=== PATIENT | female | born 1970 | race Caucasian/White ===

== ENCOUNTER 2016-11-24 11:52 | Inpatient (IN) | payer OTHER ==
[2016-11-24 13:11] VITALS: BMI 33.5
--- NOTE | 2016-11-24 15:22 | HP ---
Ad[facility] Chief Complaint: i need help to stop drinking alcohol and cocaine Allergies/Adverse Reactions: Allergies Allergy/AdvReac Type Severity Reaction Status Date / Time No Known Allergies Allergy Verified 11/24/16 15:11 History of Present Illness: this 46 years old female with alcohol and cocaine dependence,seen in [facility] last night,medically clear to come in for evaluation never been in detox before depression asthma on albuterol inhaler s/p lap gastric bypass longest period of sobriety 6 months Exam Limitations: No Limitations - Ebola screening Have you been sick,other than usual withdrawal symptoms: No - Review of Systems Constitutional: Loss of Appetite EENT: reports: No Symptoms Reported Respiratory: reports: No Symptoms reported Cardiac: reports: No Symptoms Reported GI: reports: No Symptoms Reported, Other (s/p lap gastric bypass) : reports: No Symptoms Reported Musculoskeletal: reports: No Symptoms Reported Integumentary: reports: No Symptoms Reported Neuro: reports: No Symptoms reported Endocrine: reports: No Symptoms Reported Hematology: reports: No Symptoms Reported Psychiatric: reports: Judgement Intact, Orientated x3, Depressed Patient History - Patient Medical History Hx Anemia: No Hx Asthma: Yes (on albuterol inhaler) Hx Chronic Obstructive Pulmonary Disease (COPD): No Hx Cancer: No Hx Cardiac Disorders: No Hx Congestive Heart Failure: No Hx Hypertension: No Hx Hypercholesterolemia: No Hx Pacemaker: No HX Cerebrovascular Accident: No Hx Seizures: No Hx Dementia: No Hx Diabetes: No Hx Gastrointestinal Disorders: Yes (s/p lap gastric by pass) Hx Liver Disease: No Hx Genitourinary Disorders: No Hx Sexually Transmitted Disorders: No Hx Renal Disease (ESRD): No Hx Thyroid Disease: No Hx Human Immunodeficiency Virus (HIV): No (last 11/17 negative) Hx Hepatitis C: No Hx Depression: Yes (on med) Hx Suicide Attempt: No Hx Bipolar Disorder: No Hx Schizophrenia: No Other Medical History: no suicidal,no homicidal - Patient Surgical History Hx Abdominal Surgery: Yes (s/p lap gastric by pass in 06/18 [facility]) Other Surgical History: s/p tubal ligation 21 years ago - PPD History Documented Results: Negative w/o proof Implanted On Prior R Admission?: No PPD to be Administered?: Yes - Reproductive History Patient is a Female of Child Bearing Age (11 -55 yrs old): Yes Last Menstrual Period: 11/15/16 Patient : No - Smoking Cessation Smoking history: Current every day smoker Have you smoked in the past 12 months: Yes Aproximately how many cigarettes per day: 2 Hx Chewing Tobacco Use: No Initiated information on smoking cessation: Yes 'Breaking Loose' booklet given: 11/24/16 - Substance & Tx. History Hx Alcohol Use: Yes Hx Substance Use: Yes Substance Use Type: Alcohol, Cocaine Hx Substance Use Treatment: No - Substances Abused Alcohol Route: Oral Frequency: 1-2 times per week Amount used: 1 pint vodka Age of first use: 26 Date of Last Use: 11/22/16 Cocaine Route: Inhalation Frequency: 1-3 times last 30 days Amount used: 20$ Age of first use: 42 Date of Last Use: 11/17/16 Family Disease History - Family Disease History Family Disease History: Diabetes: Mother Admission Physical Exam [facility] - Vital Signs Vital Signs: Vital Signs - 24 hr 11/24/16 13:09 Temperature 98.5 F Pulse Rate 83 Respiratory 20 Rate Blood Pressure 121/64 - Physical General Appearance: Yes: Within Normal Limits HEENTM: Yes: Within Normal Limits, Hearing grossly Normal, ISABELL, Pharynx Normal Respiratory: Yes: Lungs Clear, Normal Breath Sounds, No Respiratory Distress, Other (asthma history) Neck: Yes: Within Normal Limits Breast: Yes: Breast Exam Deferred Cardiology: Yes: Within Normal Limits, Regular Rhythm, Regular Rate, S1, S2 Abdominal: Yes: Normal Bowel Sounds, Non Tender, Flat, Soft, Pulsatile Mass Genitourinary: Yes: Within Normal Limits Back: Yes: Within Normal Limits Musculoskeletal: Yes: Within Normal Limits Extremities: Yes: Within Normal Limits, Normal Capillary Refill, Normal Inspection, Normal Range of Motion, Non-Tender Neurological: Yes: cleaning supervisor II-XII NML intact, Fully Oriented, Alert, Motor Strength 5/5 Integumentary: Yes: Within Normal Limits - Diagnostic (1) Alcohol dependence Current Visit: Yes Status: Acute (2) Cocaine abuse Current Visit: Yes Status: Acute (3) Depression Current Visit: Yes Status: Acute (4) Gastric bypass status for obesity Current Visit: Yes Status: Acute (5) Syncope Current Visit: Yes Status: Acute Cleared for Admission [facility] - Detox or Rehab Claeared for Rehab Admission: Yes [facility] Breath Alcohol Content Breath Alcohol Content: 0.049 Urine Pregancy Test - Result Urine Test Results: Negative- NO Line Present Urine Drug Screen - Results Drug Screen Negative: No Urine Drug Screen Results: DEV-Cocaine
[2016-11-24] MEDS ORDERED: LOPERAMIDE HCL 2 MG CAPSULE PO PRN (15:34)
[2016-11-24] MEDS ORDERED: P-EPHED 60MG/TRIPROLIDI 2.5MG TABLET PO PRN (15:34)
[2016-11-24] MEDS ORDERED: MAGNESIUM HYDROX 2400MG/30ML ORAL SUSPENSION 30 ML CUP PO PRN (15:34)
[2016-11-24] MEDS ORDERED: guaiFENesin/D-METHORPHAN HB 10 ML UNIT-DOSE CUPS PO PRN (15:34)
[2016-11-24] MEDS ORDERED: diphenhydrAMINE HCL 50 MG CAPSULE PO PRN (15:34)
[2016-11-24] MEDS ORDERED: IBUPROFEN 400 MG TABLET (FP) PO PRN (15:34)
[2016-11-24] MEDS ORDERED: hydrOXYzine PAMOATE 50 MG CAPSULE (FP) PO PRN (15:34)
[2016-11-24] MEDS ORDERED: MAG HYDROX/AL HYDROX/SIMETH 30 ML UNIT-DOSE CUP PO PRN (15:34)
[2016-11-24] MEDS ORDERED: MENTHOL/PHENOL 1 EACH UD MM PRN (15:34)
[2016-11-24] MEDS ORDERED: ACETAMINOPHEN 325 MG TABLET (FP) PO PRN (15:34)
[2016-11-24] MEDS ORDERED: MAGNESIUM CITRATE 300 ML BOTTLE PO PRN (15:34)
[2016-11-24] MEDS ORDERED: TUBERCULIN PPD 5 TU/0.1ML VIAL ID ONE (17:31)
[2016-11-24 20:07] LABS: URINE APPEARANCE TURBID; URINE BILIRUBIN NEGATIVE (NEGATIVE); URINE COLOR YELLOW; URINE GLUCOSE (UA) NEGATIVE (NEGATIVE); URINE KETONE 1+ (NEGATIVE); URINE LEUK ESTERASE NEGATIVE (NEGATIVE); URINE NITRITE NEGATIVE (NEGATIVE); URINE UROBILINOGEN NEGATIVE E.U./dl (0.2-1.0)
[2016-11-24 20:09] LABS: URINE BLOOD 3+ (NEGATIVE); URINE PROTEIN 2+ (NEGATIVE)
[2016-11-24 20:17] LABS: URINE MUCUS MANY; URINE RBC 50 /hpf (0-3); URINE WBC 210 /hpf (3-5); YEAST FEW
[2016-11-24] MEDS ORDERED: THIAMINE HCL 100 MG TABLET (FP) PO SCH (22:00)
[2016-11-25 07:30] VITALS: BP 149/83; PULSE 91; TEMP 97.3
[2016-11-25] MEDS ORDERED: PRENATAL VITAMINS W/ FOLIC ACID TABLET (FP) PO SCH (10:00)
[2016-11-25] MEDS ORDERED: ASPIRIN 81 MG CHEWABLE TABLETS PO SCH (10:00)
[2016-11-25 10:37] LABS: MCH 27.3 pg (25.7-33.7); MCHC 31.7 g/dl (32.0-36.0); MEAN CELL VOLUME 86.1 fl (80-96); MEAN PLT VOLUME 9.2 fl (7.5-11.1); PLATELET COUNT 318 K/MM3 (134-434); RDW 16.1 % (11.6-15.6); WHITE BLOOD COUNT 9.9 K/mm3 (4.0-10.0)
[2016-11-25 11:22] LABS: PLATELET COMMENT2 NO CLOTTING DETECTED; PLATELET ESTIMATE ADEQUATE (NORMAL)
[2016-11-25 11:23] LABS: ALBUMIN 3.6 g/dl (3.4-5.0); ALK PHOS 64 U/L (45-117); ANION GAP 11 (8-16); BILIRUBIN,TOTAL 0.5 mg/dL (0.2-1.0); CALCIUM 8.5 mg/dL (8.5-10.1); CO2 23 mmol/L (21-32); CREATININE 0.8 mg/dL (0.55-1.02); GLUCOSE,RANDOM 79 mg/dL (74-106); SGOT/AST 24 U/L (15-37); SGPT/ALT 24 U/L (12-78); TOT PROT 6.9 g/dl (6.4-8.2)
[2016-11-25] MEDS ORDERED: SERTRALINE HCL 50 MG TABLET (FP) PO SCH (13:00)
--- NOTE | 2016-11-25 18:28 | EKG ---
Test Reason : Blood Pressure : / mmHG Vent. Rate : 075 BPM Atrial Rate : 075 BPM P-R Int : 148 ms QRS Dur : 104 ms QT Int : 400 ms P-R-T Axes : 063 066 057 degrees QTc Int : 446 ms NORMAL SINUS RHYTHM WITH SINUS ARRHYTHMIA NORMAL ECG NO PREVIOUS ECGS AVAILABLE Confirmed by ABELARDO BARTON MD ([id number]) on 11/25/2016 6:28:32 PM Referred By: Confirmed By:ABELARDO BARTON MD
--- NOTE | 2016-12-25 14:08 | PN ---
S Progress Note Note: Patient left this program AMA on 11/25/16 with no psychiatric evaluation,see staff notes for details.
== END 2016-11-25 16:56 | disposition left against medical advice (07) | DRG 894 ==
LOC: YASAS 11:52 → Y6N 15:00 → Y3E 15:36
PROVIDERS: ADMIT Psychiatry & Neurology Psychiatry; ATTEND Psychiatry & Neurology Psychiatry
PROC: HZ42ZZZ Group Counseling for Substance Abuse Treatment, Cognitive-Behavioral (ICD-10-PCS; principal; 2016-11-25)
DX: F10.230 Alcohol dependence with withdrawal, uncomplicated (principal); F14.10 Cocaine abuse, uncomplicated; F32.9 Major depressive disorder, single episode, unspecified; R55 Syncope and collapse; J45.909 Unspecified asthma, uncomplicated; Z98.84 Bariatric surgery status
CPT/HCPCS: 36415; 80053; 81003; 81015; 85027; 86593; 93005; 93010

== ENCOUNTER 2017-04-21 12:17 | Inpatient (IN) | payer OTHER ==
[2017-04-21 12:52] VITALS: BMI 30.9
--- NOTE | 2017-04-21 14:35 | HP ---
CIWA Score - CIWA Score Nausea/Vomitin-Mild Nausea/No Vomiting Muscle Tremors: 4-Moderate,w/Arms Extend Anxiety: 4-Mod. Anxious/Guarded Agitation: 1-Slight > Activity Paroxysmal Sweats: 1-Minimal Palms Moist Orientation: 1-Uncertain about Date Tacttile Disturbances: 1-Very Mild Itch/Numbness Auditory Disturbances: 1-Very Mild Visual Disturbances: 1-Very Mild Sensitivity Headache: 1-Very Mild CIWA-Ar Total Score: 16 Admission ROS [facility] - HPI Chief Complaint: I keep drinking more since my daughter in December Allergies/Adverse Reactions: Allergies Allergy/AdvReac Type Severity Reaction Status Date / Time No Known Allergies Allergy Verified 11/24/16 15:11 History of Present Illness: 46 yo woman here for detox from alcohol - no seizures, history of rehab in november 2016 - here due to 's intervention. Exam Limitations: Clinical Condition - Ebola screening Have you traveled outside of the country in the last 21 days: No Have you had contact with anyone from an Ebola affected area: No Have you been sick,other than usual withdrawal symptoms: No Do you have a fever: No - Review of Systems Constitutional: Loss of Appetite, Changes in sleep EENT: reports: No Symptoms Reported Respiratory: reports: No Symptoms reported Cardiac: reports: No Symptoms Reported GI: reports: Poor Appetite, Indigestion : reports: Frequency Musculoskeletal: reports: No Symptoms Reported Integumentary: reports: No Symptoms Reported Neuro: reports: Headache, Tremors Endocrine: reports: No Symptoms Reported Hematology: reports: No Symptoms Reported Psychiatric: reports: Judgement Intact, Mood/Affect Appropiate, Orientated x3, Anxious Other Systems: Reviewed and Negative Patient History - Patient Medical History Hx Anemia: No Hx Asthma: Yes (on inhaler) Hx Chronic Obstructive Pulmonary Disease (COPD): No Hx Cancer: No Hx Cardiac Disorders: No Hx Congestive Heart Failure: No Hx Hypertension: No Hx Hypercholesterolemia: No Hx Pacemaker: No HX Cerebrovascular Accident: No Hx Seizures: No Hx Dementia: No Hx Diabetes: No Hx Gastrointestinal Disorders: No Hx Liver Disease: No Hx Genitourinary Disorders: No Hx Sexually Transmitted Disorders: No Hx Renal Disease (ESRD): No Hx Thyroid Disease: No Hx Human Immunodeficiency Virus (HIV): No (last 11/17 negative) Hx Hepatitis C: No Hx Depression: Yes (since daughter's 12/2016) Hx Suicide Attempt: No Hx Bipolar Disorder: No Hx Schizophrenia: No - Patient Surgical History Hx Abdominal Surgery: Yes (s/p lap gastric by pass in 06/18 [facility]) Other Surgical History: s/p tubal ligation 21 years ago - PPD History Previous Implant?: Yes Documented Results: Negative w/proof Date: 11/26/16 PPD to be Administered?: Yes - Reproductive History Patient is a Female of Child Bearing Age (11 -55 yrs old): Yes Last Menstrual Period: 11/15/16 - Smoking Cessation Smoking history: Current every day smoker Have you smoked in the past 12 months: Yes Aproximately how many cigarettes per day: 4 Hx Chewing Tobacco Use: No Initiated information on smoking cessation: Yes 'Breaking Loose' booklet given: 04/21/17 (give on floor) - Substance & Tx. History Hx Alcohol Use: Yes Hx Substance Use: No Substance Use Type: Alcohol Hx Substance Use Treatment: Yes (detox) - Substances Abused Alcohol Route: Oral Frequency: 3-6 times per week Amount used: 1/2 pint liquor; 3 12 oz chiqui drinks Age of first use: 28 Date of Last Use: 04/21/17 Family Disease History - Family Disease History Family Disease History: Diabetes: Mother (living,), Other: Father (living, healthy), Mother, Son (one - healthy), Daughter (one killed, one healthy) Admission Physical Exam S - Vital Signs Vital Signs: Vital Signs - 24 hr 04/21/17 12:47 Temperature 97.8 F Pulse Rate 90 Respiratory 18 Rate Blood Pressure 139/79 - Physical General Appearance: Yes: Nourished, Appropriately Dressed, Mild Distress HEENTM: Yes: Hearing grossly Normal, Normal ENT Inspection, Normal Voice, Pharynx Normal Respiratory: Yes: Normal Breath Sounds, No Respiratory Distress Neck: Yes: No masses,lesions,Nodules, Supple Breast: Yes: Breast Exam Deferred Cardiology: Yes: Regular Rhythm, Regular Rate Abdominal: Yes: Soft, Protuberent Genitourinary: Yes: Frequency Back: Yes: Decreased Range of Motion Musculoskeletal: Yes: full range of Motion, Gait Steady Extremities: Yes: Normal Inspection, Normal Range of Motion Neurological: Yes: Alert, Normal Mood/Affect, Normal Response Integumentary: Yes: Normal Color, Warm Lymphatic: Yes: Within Normal Limits - Diagnostic (1) Alcohol dependence with uncomplicated withdrawal Current Visit: Yes Status: Chronic (2) Nicotine dependence Current Visit: Yes Status: Chronic Qualifiers: Nicotine product type: cigarettes (3) History of gastric bypass Current Visit: Yes Status: Chronic Cleared for Admission [facility] - Detox or Rehab [facility] Level of Care: Medically Managed Detox Regimen/Protocol: Librium [facility] Breath Alcohol Content Breath Alcohol Content: 0.131 Urine Pregancy Test - Result Urine Test Results: Negative- NO Line Present Urine Drug Screen - Results Drug Screen Negative: Yes
[2017-04-21] MEDS ORDERED: MAGNESIUM HYDROX 2400MG/30ML ORAL SUSPENSION 30 ML CUP PO PRN (14:40)
[2017-04-21] MEDS ORDERED: NICOTINE POLACRILEX 4 MG GUM BUC PRN (14:40)
[2017-04-21] MEDS ORDERED: hydrOXYzine PAMOATE 50 MG CAPSULE (FP) PO PRN (14:40)
[2017-04-21] MEDS ORDERED: chlordiazePOXIDE HCL 25 MG CAPSULE PO PRN (14:40)
[2017-04-21] MEDS ORDERED: MENTHOL/PHENOL 1 EACH UD MM PRN (14:40)
[2017-04-21] MEDS ORDERED: guaiFENesin/D-METHORPHAN HB 10 ML UNIT-DOSE CUPS PO PRN (14:40)
[2017-04-21] MEDS ORDERED: IBUPROFEN 400 MG TABLET (FP) PO PRN (14:40)
[2017-04-21] MEDS ORDERED: MAG HYDROX/AL HYDROX/SIMETH 30 ML UNIT-DOSE CUP PO PRN (14:40)
[2017-04-21] MEDS ORDERED: MAGNESIUM CITRATE 300 ML BOTTLE PO PRN (14:40)
[2017-04-21] MEDS ORDERED: ACETAMINOPHEN 325 MG TABLET (FP) PO PRN (14:40)
[2017-04-21] MEDS ORDERED: P-EPHED 60MG/TRIPROLIDI 2.5MG TABLET PO PRN (14:40)
[2017-04-21] MEDS ORDERED: LOPERAMIDE HCL 2 MG CAPSULE PO PRN (14:40)
[2017-04-21] MEDS ORDERED: ALBUTEROL SO4 6.7 GM HFA INHALER IH PRN (14:41)
[2017-04-21] MEDS ORDERED: chlordiazePOXIDE HCL 25 MG CAPSULE PO ONE (16:00)
[2017-04-21] MEDS: chlordiazePOXIDE HCL 25 MG CAPSULE PO SCH ×2 (18:04→22:36)
[2017-04-21] MEDS: THIAMINE HCL 100 MG TABLET (FP) PO SCH (22:36)
[2017-04-21 23:19] LABS: URINE APPEARANCE CLEAR; URINE BILIRUBIN NEGATIVE (NEGATIVE); URINE BLOOD NEGATIVE (NEGATIVE); URINE COLOR STRAW; URINE GLUCOSE (UA) NEGATIVE (NEGATIVE); URINE KETONE NEGATIVE (NEGATIVE); URINE LEUK ESTERASE NEGATIVE (NEGATIVE); URINE NITRITE NEGATIVE (NEGATIVE); URINE PROTEIN NEGATIVE (NEGATIVE); URINE UROBILINOGEN NEGATIVE mg/dL (0.2-1.0)
[2017-04-22] MEDS: chlordiazePOXIDE HCL 25 MG CAPSULE PO SCH ×4 (05:56→22:28)
[2017-04-22 10:22] LABS: MCH 27.1 pg (25.7-33.7); MCHC 32.3 g/dl (32.0-36.0); MEAN CELL VOLUME 83.9 fl (80-96); MEAN PLT VOLUME 8.2 fl (7.5-11.1); PLATELET COUNT 272 K/MM3 (134-434); RDW 17.6 % (11.6-15.6)
[2017-04-22] MEDS: PRENATAL VITAMINS W/ FOLIC ACID TABLET (FP) PO SCH (10:49)
[2017-04-22 11:03] LABS: ALBUMIN 2.8 g/dl (3.4-5.0); ANION GAP 8 (8-16); CALCIUM 8.1 mg/dL (8.5-10.1); CO2 28 mmol/L (21-32); GLUCOSE,RANDOM 73 mg/dL (74-106)
[2017-04-22 11:06] LABS: ALK PHOS 50 U/L (45-117); BILIRUBIN,TOTAL 1.1 mg/dL (0.2-1.0); CREATININE 0.7 mg/dL (0.55-1.02); SGOT/AST 22 U/L (15-37); SGPT/ALT 22 U/L (12-78); TOT PROT 5.6 g/dl (6.4-8.2)
--- NOTE | 2017-04-22 12:53 | EKG ---
Test Reason : Blood Pressure : / mmHG Vent. Rate : 080 BPM Atrial Rate : 080 BPM P-R Int : 156 ms QRS Dur : 100 ms QT Int : 388 ms P-R-T Axes : 052 048 041 degrees QTc Int : 447 ms NORMAL SINUS RHYTHM NORMAL ECG WHEN COMPARED WITH ECG OF 24-NOV-2016 20:14, NO SIGNIFICANT CHANGE WAS FOUND Confirmed by ABELARDO BARTON MD ([id number]) on 04/22/2017 12:53:38 PM Referred By: Confirmed By:ABELARDO BARTON MD
--- NOTE | 2017-04-22 15:14 | PN ---
S CIWA - CIWA Score Nausea/Vomitin Muscle Tremors: 3 Anxiety: 3 Agitation: 2 Paroxysmal Sweats: 1-Minimal Palms Moist Orientation: 0-Oriented Tacttile Disturbances: 1-Very Mild Itch/Numbness Auditory Disturbances: 1-Very Mild Visual Disturbances: 1-Very Mild Sensitivity Headache: 2-Mild CIWA-Ar Total Score: 17 [facility] Progress Note (SOAP) Subjective: ALERT,IRRITABLE,ANXIOUS,INTERRUPTED SLEEP,TREMOR Objective: 04/22/17 15:12 Vital Signs Temperature 98.2 F 04/22/17 14:11 Pulse Rate 60 04/22/17 14:11 Respiratory Rate 16 04/22/17 14:11 Blood Pressure 145/85 04/22/17 14:11 O2 Sat by Pulse Oximetry (%) EKG NSR,NORMAL ECG Laboratory Last Values WBC 9.0 K/mm3 (4.0-10.0) 04/22/17 07:45 RBC 4.03 M/mm3 (3.60-5.2) 04/22/17 07:45 Hgb 10.9 GM/dL (10.7-15.3) D 04/22/17 07:45 Hct 33.8 % (32.4-45.2) D 04/22/17 07:45 MCV 83.9 fl (80-96) 04/22/17 07:45 MCH 27.1 pg (25.7-33.7) 04/22/17 07:45 MCHC 32.3 g/dl (32.0-36.0) 04/22/17 07:45 RDW 17.6 % (11.6-15.6) H 04/22/17 07:45 Plt Count 272 K/MM3 (134-434) 04/22/17 07:45 MPV 8.2 fl (7.5-11.1) D 04/22/17 07:45 Sodium 141 mmol/L (136-145) 04/22/17 07:45 Potassium 3.5 mmol/L (3.5-5.1) 04/22/17 07:45 Chloride 105 mmol/L (98-107) 04/22/17 07:45 Carbon Dioxide 28 mmol/L (21-32) D 04/22/17 07:45 Anion Gap 8 (8-16) 04/22/17 07:45 BUN 6 mg/dL (7-18) L D 04/22/17 07:45 Creatinine 0.7 mg/dL (0.55-1.02) 04/22/17 07:45 Creat Clearance w eGFR > 60 (>60) 04/22/17 07:45 Random Glucose 73 mg/dL (74-106) L 04/22/17 07:45 Calcium 8.1 mg/dL (8.5-10.1) L 04/22/17 07:45 Total Bilirubin 1.1 mg/dL (0.2-1.0) H D 04/22/17 07:45 AST 22 U/L (15-37) 04/22/17 07:45 ALT 22 U/L (12-78) 04/22/17 07:45 Alkaline Phosphatase 50 U/L (45-117) D 04/22/17 07:45 Total Protein 5.6 g/dl (6.4-8.2) L 04/22/17 07:45 Albumin 2.8 g/dl (3.4-5.0) L D 04/22/17 07:45 Urine Color Straw 04/21/17 23:10 Urine Appearance Clear 04/21/17 23:10 Urine pH 6.0 (5.0-8.0) 04/21/17 23:10 Ur Specific [place] <= 1.005 (1.005-1.025) 04/21/17 23:10 Urine Protein Negative (NEGATIVE) 04/21/17 23:10 Urine Glucose (UA) Negative (NEGATIVE) 04/21/17 23:10 Urine Ketones Negative (NEGATIVE) 04/21/17 23:10 Urine Blood Negative (NEGATIVE) 04/21/17 23:10 Urine Nitrite Negative (NEGATIVE) 04/21/17 23:10 Urine Bilirubin Negative (NEGATIVE) 04/21/17 23:10 Urine Urobilinogen Negative mg/dL (0.2-1.0) 04/21/17 23:10 Ur Leukocyte Esterase Negative (NEGATIVE) 04/21/17 23:10 RPR Titer Nonreactive (NONREACTIVE) 04/22/17 07:45 Assessment: 04/22/17 15:13 WITHDRAWAL SYMPTOM Plan: CONTINUE DETOX
[2017-04-22] MEDS: diphenhydrAMINE HCL 50 MG CAPSULE PO PRN (22:28)
[2017-04-22] MEDS: THIAMINE HCL 100 MG TABLET (FP) PO SCH (22:28)
[2017-04-23] MEDS: chlordiazePOXIDE HCL 25 MG CAPSULE PO SCH ×2 (05:58→10:14)
--- NOTE | 2017-04-23 08:59 | CONSULT ---
[facility] Psychiatric Consult - Data Date of interview: 04/23/17 Admission source: [facility] Identifying data: This is 46 years old female with no psychiatric hospitalization history intoxicated with: Alcohol, Cocaine, Xanax and Nicotine Substance Abuse History: - Smoking Cessation. Smoking history: Current every day smoker. Have you smoked in the past 12 months: Yes. Aproximately how many cigarettes per day: 4. Hx Chewing Tobacco Use: No. Initiated information on smoking cessation: Yes. 'Breaking Loose' booklet given: 04/21/17 (give on floor ). - Substance & Tx. History. Hx Alcohol Use: Yes. Hx Substance Use: No. Substance Use Type: Alcohol. Hx Substance Use Treatment: Yes (detox). - Substances Abused. Alcohol. Route: Oral. Frequency: 3-6 times per week. Amount used: 1/2 pint liquor; 3 12 oz chiqui drinks. Age of first use: 28. Date of Last Use: 04/21/17 Medical History: Gastric Bypass history, lot 110 LBS, Syncope history Psychiatric History: Reportsd history of Depression,. reports no psychiatric medications taking prior to admission Physical/Sexual Abuse/Trauma History: Denies Additional Comment: Observation. Detox Unit Care Protocol Mental Status Exam - Mental Status Exam Alert and Oriented to: Person Cognitive Function: Fair Patient Appearance: Unkempt Mood: Sad Affect: Flat Patient Behavior: Sedated Speech Pattern: Delayed Voice Loudness: Mildly Soft/Quiet Thought Process: Goal Oriented Thought Disorder: Being Controlled Hallucinations: Denies Suicidal Ideation: Denies Homicidal Ideation: Denies Insight/Judgement: Fair Sleep: Difficulty falling asleep Appetite: Weight gain Muscle strength/Tone: Mild Hypotonicity Gait/Station: Normal Additional Comments: Observation. Detox Unit Care Protocol Psychiatric Findings - Problem List ([place] 1, 2,3) (1) Alcohol dependence with uncomplicated withdrawal Current Visit: Yes Status: Chronic (2) Nicotine dependence Current Visit: Yes Status: Chronic Qualifiers: Nicotine product type: cigarettes (3) Drug-induced mood disorder Current Visit: Yes Status: Acute - Initial Treatment Plan Initial Treatment Plan: Observation. Detox Unit Care Protocol
[2017-04-23] MEDS: PRENATAL VITAMINS W/ FOLIC ACID TABLET (FP) PO SCH (10:13)
--- NOTE | 2017-04-23 11:52 | PN ---
[facility] CIWA - CIWA Score Nausea/Vomitin-No Nausea/No Vomiting Muscle Tremors: 4-Moderate,w/Arms Extend Anxiety: 4-Mod. Anxious/Guarded Agitation: 4-Moderately Restless Paroxysmal Sweats: 3 Orientation: 0-Oriented Tacttile Disturbances: 0-None Auditory Disturbances: 0-None Visual Disturbances: 0-None Headache: 0-None Present CIWA-Ar Total Score: 15 S Progress Note (SOAP) Subjective: teary/crying. I am here because I lost my daughter 4 months ago and started drinking heavily. sweats shakes interrupted sleep Objective: 04/23/17 11:51 Vital Signs Temperature 97.7 F 04/23/17 10:47 Pulse Rate 79 04/23/17 10:47 Respiratory Rate 20 04/23/17 10:47 Blood Pressure 139/76 04/23/17 10:47 O2 Sat by Pulse Oximetry (%) Laboratory Tests 04/21/17 04/22/17 04/22/17 23:10 07:45 07:45 WBC 9.0 RBC 4.03 Hgb 10.9 D Hct 33.8 D MCV 83.9 MCH 27.1 MCHC 32.3 RDW 17.6 H Plt Count 272 MPV 8.2 D Sodium 141 Potassium 3.5 Chloride 105 Carbon Dioxide 28 D Anion Gap 8 BUN 6 L D Creatinine 0.7 Creat Clearance w eGFR > 60 Random Glucose 73 L Calcium 8.1 L Total Bilirubin 1.1 H D AST 22 ALT 22 Alkaline Phosphatase 50 D Total Protein 5.6 L Albumin 2.8 L D Urine Color Straw Urine Appearance Clear Urine pH 6.0 Ur Specific [place] <= 1.005 Urine Protein Negative Urine Glucose (UA) Negative Urine Ketones Negative Urine Blood Negative Urine Nitrite Negative Urine Bilirubin Negative Urine Urobilinogen Negative Ur Leukocyte Esterase Negative RPR Titer 04/22/17 07:45 WBC RBC Hgb Hct MCV MCH MCHC RDW Plt Count MPV Sodium Potassium Chloride Carbon Dioxide Anion Gap BUN Creatinine Creat Clearance w eGFR Random Glucose Calcium Total Bilirubin AST ALT Alkaline Phosphatase Total Protein Albumin Urine Color Urine Appearance Urine pH Ur Specific [place] Urine Protein Urine Glucose (UA) Urine Ketones Urine Blood Urine Nitrite Urine Bilirubin Urine Urobilinogen Ur Leukocyte Esterase RPR Titer Nonreactive awake/alert ambulating no acute distress Assessment: 04/23/17 11:51 withdrawal sx Plan: continue detox increase fluids f/u with PMD, outpatient, psych after detox to continue treatment. pt in agreement.
[2017-04-23] MEDS: chlordiazePOXIDE 5 MG CAPSULE PO SCH ×2 (17:33→22:24)
[2017-04-23] MEDS: THIAMINE HCL 100 MG TABLET (FP) PO SCH (22:24)
[2017-04-23] MEDS: diphenhydrAMINE HCL 50 MG CAPSULE PO PRN (22:24)
[2017-04-24] MEDS: chlordiazePOXIDE 5 MG CAPSULE PO SCH ×2 (05:59→10:43)
[2017-04-24] MEDS: PRENATAL VITAMINS W/ FOLIC ACID TABLET (FP) PO SCH (10:43)
--- NOTE | 2017-04-24 12:39 | PN ---
[facility] Progress Note (SOAP) Subjective: Sweating,interrupted sleep,restless Objective: 04/24/17 12:38 Vital Signs - 8 hr 04/24/17 04/24/17 06:00 09:37 Temperature 97.7 F 97.7 F Pulse Rate 68 65 Respiratory 18 16 Rate Blood Pressure 138/87 142/79 Laboratory Last Values WBC 9.0 K/mm3 (4.0-10.0) 04/22/17 07:45 RBC 4.03 M/mm3 (3.60-5.2) 04/22/17 07:45 Hgb 10.9 GM/dL (10.7-15.3) D 04/22/17 07:45 Hct 33.8 % (32.4-45.2) D 04/22/17 07:45 MCV 83.9 fl (80-96) 04/22/17 07:45 MCH 27.1 pg (25.7-33.7) 04/22/17 07:45 MCHC 32.3 g/dl (32.0-36.0) 04/22/17 07:45 RDW 17.6 % (11.6-15.6) H 04/22/17 07:45 Plt Count 272 K/MM3 (134-434) 04/22/17 07:45 MPV 8.2 fl (7.5-11.1) D 04/22/17 07:45 Sodium 141 mmol/L (136-145) 04/22/17 07:45 Potassium 3.5 mmol/L (3.5-5.1) 04/22/17 07:45 Chloride 105 mmol/L (98-107) 04/22/17 07:45 Carbon Dioxide 28 mmol/L (21-32) D 04/22/17 07:45 Anion Gap 8 (8-16) 04/22/17 07:45 BUN 6 mg/dL (7-18) L D 04/22/17 07:45 Creatinine 0.7 mg/dL (0.55-1.02) 04/22/17 07:45 Creat Clearance w eGFR > 60 (>60) 04/22/17 07:45 Random Glucose 73 mg/dL (74-106) L 04/22/17 07:45 Calcium 8.1 mg/dL (8.5-10.1) L 04/22/17 07:45 Total Bilirubin 1.1 mg/dL (0.2-1.0) H D 04/22/17 07:45 AST 22 U/L (15-37) 04/22/17 07:45 ALT 22 U/L (12-78) 04/22/17 07:45 Alkaline Phosphatase 50 U/L (45-117) D 04/22/17 07:45 Total Protein 5.6 g/dl (6.4-8.2) L 04/22/17 07:45 Albumin 2.8 g/dl (3.4-5.0) L D 04/22/17 07:45 Urine Color Straw 04/21/17 23:10 Urine Appearance Clear 04/21/17 23:10 Urine pH 6.0 (5.0-8.0) 04/21/17 23:10 Ur Specific [place] <= 1.005 (1.005-1.025) 04/21/17 23:10 Urine Protein Negative (NEGATIVE) 04/21/17 23:10 Urine Glucose (UA) Negative (NEGATIVE) 04/21/17 23:10 Urine Ketones Negative (NEGATIVE) 04/21/17 23:10 Urine Blood Negative (NEGATIVE) 04/21/17 23:10 Urine Nitrite Negative (NEGATIVE) 04/21/17 23:10 Urine Bilirubin Negative (NEGATIVE) 04/21/17 23:10 Urine Urobilinogen Negative mg/dL (0.2-1.0) 04/21/17 23:10 Ur Leukocyte Esterase Negative (NEGATIVE) 04/21/17 23:10 RPR Titer Nonreactive (NONREACTIVE) 04/22/17 07:45 labs noted Assessment: 04/24/17 12:38 Withdrawal sx. Plan: Continue detox
[2017-04-24] MEDS: chlordiazePOXIDE HCL 10 MG CAPSULE PO SCH ×2 (17:33→22:12)
[2017-04-24 21:33] VITALS: TEMP 97.9
[2017-04-24] MEDS: THIAMINE HCL 100 MG TABLET (FP) PO SCH (22:12)
[2017-04-24] MEDS: diphenhydrAMINE HCL 50 MG CAPSULE PO PRN (22:12)
[2017-04-25] MEDS: chlordiazePOXIDE HCL 10 MG CAPSULE PO SCH ×2 (05:37→10:00)
--- NOTE | 2017-04-25 08:47 | DS ---
[facility] Detox Discharge Summary Admission Date: 04/21/17 Discharge Date: 04/25/17 - History Present History: Alcohol Dependence - Physical Exam Results Vital Signs: Vital Signs Temperature 97.9 F 04/24/17 21:32 Pulse Rate 81 04/24/17 21:32 Respiratory Rate 18 04/25/17 00:30 Blood Pressure 124/75 04/24/17 21:32 O2 Sat by Pulse Oximetry (%) - Treatment Hospital Course: Detox Protocol Followed, Detoxed Safely, Responded well, Discharged Condition Good - Medication Discharge Medications: Ambulatory Orders Omeprazole 40 mg PO DAILY 04/21/17 - Diagnosis (1) Alcohol dependence with uncomplicated withdrawal Current Visit: Yes Status: Chronic (2) History of gastric bypass Current Visit: Yes Status: Chronic (3) Nicotine dependence Current Visit: Yes Status: Chronic Qualifiers: Nicotine product type: cigarettes Substance use status: uncomplicated Qualified Code(s): F17.210 - Nicotine dependence, cigarettes, uncomplicated (4) Depression Current Visit: Yes Status: Chronic - AMA Did Patient Leave Against Medical Advice: No
[2017-04-25] MEDS: PRENATAL VITAMINS W/ FOLIC ACID TABLET (FP) PO SCH (09:14)
[2017-04-25 10:05] VITALS: BP 123/71; PULSE 75
== END 2017-04-25 10:15 | disposition home or self-care (01) | DRG 897 ==
LOC: YASAS 12:17 → Y6N 17:09
PROVIDERS: ADMIT Internal Medicine; ATTEND Internal Medicine
PROC: HZ2ZZZZ Detoxification Services for Substance Abuse Treatment (ICD-10-PCS; principal; 2017-04-25)
DX: F10.230 Alcohol dependence with withdrawal, uncomplicated (principal); F17.210 Nicotine dependence, cigarettes, uncomplicated; F32.9 Major depressive disorder, single episode, unspecified; F19.24 Other psychoactive substance dependence with psychoactive substance-induced mood disorder; Z98.84 Bariatric surgery status
CPT/HCPCS: 36415; 80053; 81003; 85027; 86593; 93005; 93010

== ENCOUNTER 2017-07-20 08:13 | Inpatient (IN) | payer OTHER ==
[2017-07-20 08:43] VITALS: BMI 31.8
[2017-07-20] MEDS ORDERED: MAG HYDROX/AL HYDROX/SIMETH 30 ML UNIT-DOSE CUP PO PRN (10:46)
[2017-07-20] MEDS ORDERED: LOPERAMIDE HCL 2 MG CAPSULE PO PRN (10:46)
[2017-07-20] MEDS ORDERED: MAGNESIUM HYDROX 2400MG/30ML ORAL SUSPENSION 30 ML CUP PO PRN (10:46)
[2017-07-20] MEDS ORDERED: chlordiazePOXIDE HCL 25 MG CAPSULE PO PRN (10:46)
[2017-07-20] MEDS ORDERED: MENTHOL/PHENOL 1 EACH UD MM PRN (10:46)
[2017-07-20] MEDS ORDERED: NICOTINE POLACRILEX 2 MG GUM BUC PRN (10:46)
[2017-07-20] MEDS ORDERED: MAGNESIUM CITRATE 300 ML BOTTLE PO PRN (10:46)
--- NOTE | 2017-07-20 10:46 | HP ---
CIWA Score - CIWA Score Nausea/Vomitin Muscle Tremors: 4-Moderate,w/Arms Extend Anxiety: 3 Agitation: 3 Paroxysmal Sweats: 3 Orientation: 0-Oriented Tacttile Disturbances: 0-None Auditory Disturbances: 0-None Visual Disturbances: 0-None Headache: 3-Moderate CIWA-Ar Total Score: 19 Admission ROS S - HPI Chief Complaint: alcohol withdrawal sx Allergies/Adverse Reactions: Allergies Allergy/AdvReac Type Severity Reaction Status Date / Time No Known Allergies Allergy Verified 07/20/17 09:22 History of Present Illness: 46 yo f with multiple admissions to detox and rehab for alcohol use disorder, requesting inpateint detox fromalcohol because of alcohol withdrawal sx, last drink yesterday. recently used cocaine socially but does not use every day. PMHx depression, anxiety, insomnia, nicotien dependence. no suicicde attempts in past, no SI. no h/o seiuzres, or DTS. Exam Limitations: No Limitations - Ebola screening Have you traveled outside of the country in the last 21 days: No (N) Have you had contact with anyone from an Ebola affected area: No Have you been sick,other than usual withdrawal symptoms: No Do you have a fever: No - Review of Systems Constitutional: Diaphoresis, Changes in sleep, Weakness, Weight Stable EENT: reports: No Symptoms Reported Respiratory: reports: No Symptoms reported Cardiac: reports: No Symptoms Reported GI: reports: Nausea, Poor Appetite, Poor Fluid Intake, Indigestion, Abdominal cramping : reports: No Symptoms Reported Musculoskeletal: reports: No Symptoms Reported Integumentary: reports: Flushing, Sweating Neuro: reports: Headache, Tremors, Weakness Hematology: reports: No Symptoms Reported Psychiatric: reports: Judgement Intact, Mood/Affect Appropiate, Orientated x3, Anxious, Depressed Other Systems: Reviewed and Negative Patient History - Patient Medical History Hx Anemia: No Hx Asthma: No Hx Chronic Obstructive Pulmonary Disease (COPD): No Hx Cancer: No Hx Cardiac Disorders: No Hx Congestive Heart Failure: No Hx Hypertension: No Hx Hypercholesterolemia: No Hx Pacemaker: No HX Cerebrovascular Accident: No Hx Seizures: No Hx Dementia: No Hx Diabetes: No Hx Gastrointestinal Disorders: No Hx Liver Disease: No Hx Genitourinary Disorders: No Hx Sexually Transmitted Disorders: No Hx Renal Disease (ESRD): No Hx Thyroid Disease: No Hx Human Immunodeficiency Virus (HIV): No (last 11/17 negative) Hx Hepatitis C: No Hx Depression: Yes Hx Suicide Attempt: No (n SI at this time) Hx Bipolar Disorder: No Hx Schizophrenia: No - Patient Surgical History Past Surgical History: Yes Hx Neurologic Surgery: No Hx Cataract Extraction: No Hx Cardiac Surgery: No Hx Lung Surgery: No Hx Breast Surgery: No Hx Breast Biopsy: No Hx Abdominal Surgery: Yes (s/p lap gastric by pass in 06/18 [facility]) Hx Appendectomy: No Hx Cholecystectomy: No Hx Genitourinary Surgery: No Hx Section: No Hx Orthopedic Surgery: No Other Surgical History: s/p tubal ligation 21 years ago Anesthesia Reaction: No - PPD History Previous Implant?: Yes Documented Results: Negative w/o proof Implanted On Prior [facility] Admission?: Yes Date: 11/26/16 PPD to be Administered?: Yes - Reproductive History Patient is a Female of Child Bearing Age (11 -55 yrs old): Yes Last Menstrual Period: 07/08/17 Patient : No - Smoking Cessation Smoking history: Current every day smoker Have you smoked in the past 12 months: Yes Aproximately how many cigarettes per day: 4 Hx Chewing Tobacco Use: No Initiated information on smoking cessation: Yes 'Breaking Loose' booklet given: 07/20/17 - Substance & Tx. History Hx Alcohol Use: Yes Hx Substance Use: Yes Substance Use Type: Alcohol, Cocaine Hx Substance Use Treatment: Yes ([facility]) - Substances Abused Alcohol Route: Oral Frequency: 3-6 times per week Amount used: vodka(1/2 pint) Age of first use: 28 Date of Last Use: 07/19/17 Cocaine Route: Inhalation Frequency: 1-3 times last 30 days Amount used: social x1 Age of first use: 46 Date of Last Use: 07/19/17 Family Disease History - Family Disease History Family Disease History: Diabetes: Mother (living,), Other: Father (living, healthy), Mother, Son (one - healthy), Daughter (one killed, one healthy) Admission Physical Exam BHS - Vital Signs Vital Signs: Vital Signs - 24 hr 07/20/17 08:39 Temperature 98.1 F Pulse Rate 90 Respiratory 18 Rate Blood Pressure 160/90 - Physical General Appearance: Yes: Nourished, Appropriately Dressed, Disheveled, Mild Distress, Tremorous, Irritable, Sweating, Anxious HEENTM: Yes: Within Normal Limits, EOMI, Hearing grossly Normal, Normal ENT Inspection, Normocephalic, Normal Voice, ISABELL, Pharynx Normal Respiratory: Yes: Within Normal Limits, Chest Non-Tender, Lungs Clear, Normal Breath Sounds, No Respiratory Distress, No Accessory Muscle Use Neck: Yes: Within Normal Limits, No masses,lesions,Nodules, Supple, Trachea in good position Breast: Yes: Breast Exam Deferred Cardiology: Yes: Within Normal Limits, Regular Rhythm, Regular Rate, S1, S2 Abdominal: Yes: Within Normal Limits, Normal Bowel Sounds, Non Tender, Flat, Soft Musculoskeletal: Yes: Within Normal Limits, full range of Motion, Gait Steady, Pelvis Stable Extremities: Yes: Normal Capillary Refill, Normal Range of Motion, Tremors Neurological: Yes: learning support specialist II-XII NML intact, Fully Oriented, Alert, Motor Strength 5/5, Normal Response, Depressed Affect Integumentary: Yes: Normal Color, Warm, Diaphoresis, Moist Lymphatic: Yes: Within Normal Limits - Addiitonal Findings: withdrawal sx and dehydration present, depressed affect - Diagnostic (1) Drug-induced mood disorder Current Visit: No Status: Acute (2) Alcohol dependence with uncomplicated withdrawal Current Visit: No Status: Chronic (3) History of gastric bypass Current Visit: No Status: Chronic (4) Nicotine dependence Current Visit: No Status: Chronic Qualifiers: Cleared for Admission [facility] - Detox or Rehab [facility] Level of Care: Medically Managed Detox Regimen/Protocol: Librium [facility] Breath Alcohol Content Breath Alcohol Content: 0.143 Urine Pregancy Test - Result Urine Test Results: Negative- NO Line Present Urine Drug Screen - Results Drug Screen Negative: No Urine Drug Screen Results: DEV-Cocaine
[2017-07-20] MEDS ORDERED: chlordiazePOXIDE HCL 25 MG CAPSULE PO ONE (11:44)
[2017-07-20] MEDS: NICOTINE 14 MG/24 HOURS TOPICAL PATCH TD SCH (13:29)
[2017-07-20] MEDS: ACETAMINOPHEN 325 MG TABLET (FP) PO PRN (13:30)
--- NOTE | 2017-07-20 15:15 | CONSULT ---
[facility] Psychiatric Consult - Data Date of interview: 07/20/17 Admission source: [facility] Identifying data: Readmission to [facility] for this 46 y/o female seeking detox treatment on for alcohol dependence.Patient is single,a mother of three,domiciled and employed. Substance Abuse History: Patient admits to active use of alcohol as detailed in this [facility] report. Smoking history: Current every day smoker. Have you smoked in the past 12 months: Yes. Aproximately how many cigarettes per day: 4. Hx Chewing Tobacco Use: No. Initiated information on smoking cessation: Yes. ' Breaking Loose' booklet given: 07/20/17. - Substance & Tx. History. Hx Alcohol Use: Yes. Hx Substance Use: Yes. Substance Use Type: Alcohol, Cocaine. Hx Substance Use Treatment: Yes ([facility] - Substances Abused. Alcohol. Route: Oral. Frequency: 3-6 times per week. Amount used : vodka(1/2 pint). Age of first use: 28. Date of Last Use: 07/19/17. Cocaine. Route: Inhalation. Frequency: 1-3 times last 30 days. Amount used: social x1. Age of first use: 46. Date of Last Use: 07/19/17 Medical History: Patient endorses good general health.History of tubal ligation. Psychiatric History: No reported history of psychiatric hospitalization.Briefly treated with sertraline.Patient indicates past history of depression ( of one of her children).Stopped takind zoloft more than six months ago.No OPD care for several months.Ms Sheehan denies history of suicide attempts. Physical/Sexual Abuse/Trauma History: Patient denies history of abuse. Additional Comment: Urine Drug Screen Results: DEV-Cocaine.Noted. Mental Status Exam - Mental Status Exam Alert and Oriented to: Time, Place, Person Cognitive Function: Good Patient Appearance: Well Groomed Mood: Hopeful, Euthymic Affect: Normal Range Patient Behavior: Fatigued, Appropriate, Cooperative Speech Pattern: Clear Voice Loudness: Normal Thought Process: Intact, Goal Oriented Thought Disorder: Not Present Hallucinations: Denies Suicidal Ideation: Denies Homicidal Ideation: Denies Insight/Judgement: Poor Sleep: Well Appetite: Good Muscle strength/Tone: Normal Gait/Station: Normal Psychiatric Findings - Problem List ([place] 1, 2,3) (1) Alcohol dependence with uncomplicated withdrawal Current Visit: Yes Status: Acute (2) Cocaine abuse Current Visit: Yes Status: Acute (3) Nicotine dependence Current Visit: Yes Status: Acute Qualifiers: (4) Drug-induced mood disorder Current Visit: Yes Status: Acute - Initial Treatment Plan Initial Treatment Plan: Psychoeducation.Detoxification.Observation.Patient declines to resume antidepressant medications.
[2017-07-20 16:56] LABS: URINE APPEARANCE CLEAR; URINE BILIRUBIN NEGATIVE (NEGATIVE); URINE BLOOD NEGATIVE (NEGATIVE); URINE COLOR YELLOW; URINE GLUCOSE (UA) NEGATIVE (NEGATIVE); URINE KETONE NEGATIVE (NEGATIVE); URINE NITRITE NEGATIVE (NEGATIVE); URINE PROTEIN NEGATIVE (NEGATIVE); URINE UROBILINOGEN NEGATIVE mg/dL (0.2-1.0)
[2017-07-20] MEDS: chlordiazePOXIDE HCL 25 MG CAPSULE PO SCH ×2 (17:34→22:17)
[2017-07-20 21:07] LABS: URINE LEUK ESTERASE Negative (NEGATIVE)
[2017-07-20] MEDS: THIAMINE HCL 100 MG TABLET (FP) PO SCH (22:16)
[2017-07-21] MEDS: chlordiazePOXIDE HCL 25 MG CAPSULE PO SCH ×4 (05:31→22:23)
[2017-07-21 10:33] LABS: PLATELET COUNT 301 K/MM3 (134-434)
[2017-07-21 10:35] LABS: MCH 25.4 pg (25.7-33.7); MCHC 31.6 g/dl (32.0-36.0); MEAN CELL VOLUME 80.5 fl (80-96); MEAN PLT VOLUME 8.7 fl (7.5-11.1); RDW 17.4 % (11.6-15.6); WHITE BLOOD COUNT 9.1 K/mm3 (4.0-10.0)
[2017-07-21] MEDS: PRENATAL VITAMINS W/ FOLIC ACID TABLET (FP) PO SCH (10:51)
[2017-07-21] MEDS: IBUPROFEN 400 MG TABLET (FP) PO PRN (10:51)
[2017-07-21] MEDS: NICOTINE 14 MG/24 HOURS TOPICAL PATCH TD SCH (10:52)
[2017-07-21 10:54] LABS: ALBUMIN 3.4 g/dl (3.4-5.0); ANION GAP 14 (8-16); CALCIUM 8.3 mg/dL (8.5-10.1); CO2 24 mmol/L (21-32); CREATININE 0.6 mg/dL (0.55-1.02); GLUCOSE,RANDOM 114 mg/dL (74-106); SGOT/AST 19 U/L (15-37); SGPT/ALT 22 U/L (12-78)
[2017-07-21 10:55] LABS: ALK PHOS 86 U/L (45-117); BILIRUBIN,TOTAL 0.8 mg/dL (0.2-1.0); TOT PROT 6.8 g/dl (6.4-8.2)
[2017-07-21] MEDS ORDERED: FLU VACCINE QUAD 60 MCG/0.5 ML (MDV 17-18) IM ONE (12:00)
--- NOTE | 2017-07-21 14:19 | PN ---
S CIWA - CIWA Score Nausea/Vomitin-No Nausea/No Vomiting Muscle Tremors: 3 Anxiety: 4-Mod. Anxious/Guarded Agitation: 3 Paroxysmal Sweats: 3 Orientation: 0-Oriented Tacttile Disturbances: 0-None Auditory Disturbances: 0-None Visual Disturbances: 0-None Headache: 0-None Present CIWA-Ar Total Score: 13 BHS Progress Note (SOAP) Subjective: Anxiety,tremors,sweating,interrupted sleep,restless. Objective: 07/21/17 14:16 Vital Signs - 8 hr 07/21/17 07/21/17 07:14 10:00 Temperature 98.4 F Pulse Rate 57 L 75 Respiratory 18 18 Rate Blood Pressure 150/73 138/83 Laboratory Tests 07/20/17 07/21/17 07/21/17 15:00 06:00 06:00 WBC 9.1 RBC 4.66 Hgb 11.8 Hct 37.5 MCV 80.5 MCH 25.4 L MCHC 31.6 L RDW 17.4 H Plt Count 301 MPV 8.7 Sodium 139 Potassium 3.5 Chloride 101 Carbon Dioxide 24 Anion Gap 14 BUN 5 L Creatinine 0.6 Creat Clearance w eGFR > 60 Random Glucose 114 H D Calcium 8.3 L Total Bilirubin 0.8 D AST 19 ALT 22 Alkaline Phosphatase 86 D Total Protein 6.8 D Albumin 3.4 D Urine Color Yellow Urine Appearance Clear Urine pH 6.0 Ur Specific [place] 1.012 Urine Protein Negative Urine Glucose (UA) Negative Urine Ketones Negative Urine Blood Negative Urine Nitrite Negative Urine Bilirubin Negative Urine Urobilinogen Negative Ur Leukocyte Esterase Negative RPR Titer 07/21/17 06:00 WBC RBC Hgb Hct MCV MCH MCHC RDW Plt Count MPV Sodium Potassium Chloride Carbon Dioxide Anion Gap BUN Creatinine Creat Clearance w eGFR Random Glucose Calcium Total Bilirubin AST ALT Alkaline Phosphatase Total Protein Albumin Urine Color Urine Appearance Urine pH Ur Specific [place] Urine Protein Urine Glucose (UA) Urine Ketones Urine Blood Urine Nitrite Urine Bilirubin Urine Urobilinogen Ur Leukocyte Esterase RPR Titer Nonreactive labs noted Assessment: 07/21/17 14:17 Withdrawal sx. Plan: Continue detox
[2017-07-21] MEDS: THIAMINE HCL 100 MG TABLET (FP) PO SCH (22:22)
[2017-07-21] MEDS: hydrOXYzine PAMOATE 50 MG CAPSULE (FP) PO PRN (22:23)
[2017-07-22] MEDS: chlordiazePOXIDE HCL 25 MG CAPSULE PO SCH ×2 (05:56→10:29)
[2017-07-22] MEDS: ACETAMINOPHEN 325 MG TABLET (FP) PO PRN (05:57)
[2017-07-22] MEDS: PRENATAL VITAMINS W/ FOLIC ACID TABLET (FP) PO SCH (10:29)
[2017-07-22] MEDS: P-EPHED 60MG/TRIPROLIDI 2.5MG TABLET PO PRN (10:30)
[2017-07-22] MEDS: guaiFENesin/D-METHORPHAN HB 10 ML UNIT-DOSE CUPS PO PRN ×2 (10:30→22:21)
[2017-07-22] MEDS: IBUPROFEN 400 MG TABLET (FP) PO PRN ×2 (10:32→22:23)
[2017-07-22] MEDS: NICOTINE 14 MG/24 HOURS TOPICAL PATCH TD SCH (10:40)
--- NOTE | 2017-07-22 11:39 | PN ---
[facility] CIWA - CIWA Score Nausea/Vomitin-Mild Nausea/No Vomiting Muscle Tremors: 4-Moderate,w/Arms Extend Anxiety: 4-Mod. Anxious/Guarded Agitation: 3 Paroxysmal Sweats: 3 Orientation: 0-Oriented Tacttile Disturbances: 0-None Auditory Disturbances: 0-None Visual Disturbances: 0-None Headache: 0-None Present CIWA-Ar Total Score: 15 S Progress Note (SOAP) Subjective: Anxiety,tremors,sweating,interrupted sleep,restless Objective: 07/22/17 11:38 Vital Signs - 8 hr 07/22/17 07/22/17 06:00 09:44 Temperature 98.4 F 97.4 F L Pulse Rate 69 69 Respiratory 18 18 Rate Blood Pressure 132/80 148/83 Laboratory Last Values WBC 9.1 K/mm3 (4.0-10.0) 07/21/17 06:00 RBC 4.66 M/mm3 (3.60-5.2) 07/21/17 06:00 Hgb 11.8 GM/dL (10.7-15.3) 07/21/17 06:00 Hct 37.5 % (32.4-45.2) 07/21/17 06:00 MCV 80.5 fl (80-96) 07/21/17 06:00 MCH 25.4 pg (25.7-33.7) L 07/21/17 06:00 MCHC 31.6 g/dl (32.0-36.0) L 07/21/17 06:00 RDW 17.4 % (11.6-15.6) H 07/21/17 06:00 Plt Count 301 K/MM3 (134-434) 07/21/17 06:00 MPV 8.7 fl (7.5-11.1) 07/21/17 06:00 Sodium 139 mmol/L (136-145) 07/21/17 06:00 Potassium 3.5 mmol/L (3.5-5.1) 07/21/17 06:00 Chloride 101 mmol/L (98-107) 07/21/17 06:00 Carbon Dioxide 24 mmol/L (21-32) 07/21/17 06:00 Anion Gap 14 (8-16) 07/21/17 06:00 BUN 5 mg/dL (7-18) L 07/21/17 06:00 Creatinine 0.6 mg/dL (0.55-1.02) 07/21/17 06:00 Creat Clearance w eGFR > 60 (>60) 07/21/17 06:00 Random Glucose 114 mg/dL (74-106) H D 07/21/17 06:00 Calcium 8.3 mg/dL (8.5-10.1) L 07/21/17 06:00 Total Bilirubin 0.8 mg/dL (0.2-1.0) D 07/21/17 06:00 AST 19 U/L (15-37) 07/21/17 06:00 ALT 22 U/L (12-78) 07/21/17 06:00 Alkaline Phosphatase 86 U/L (45-117) D 07/21/17 06:00 Total Protein 6.8 g/dl (6.4-8.2) D 07/21/17 06:00 Albumin 3.4 g/dl (3.4-5.0) D 07/21/17 06:00 Urine Color Yellow 07/20/17 15:00 Urine Appearance Clear 07/20/17 15:00 Urine pH 6.0 (5.0-8.0) 07/20/17 15:00 Ur Specific [place] 1.012 (1.001-1.035) 07/20/17 15:00 Urine Protein Negative (NEGATIVE) 07/20/17 15:00 Urine Glucose (UA) Negative (NEGATIVE) 07/20/17 15:00 Urine Ketones Negative (NEGATIVE) 07/20/17 15:00 Urine Blood Negative (NEGATIVE) 07/20/17 15:00 Urine Nitrite Negative (NEGATIVE) 07/20/17 15:00 Urine Bilirubin Negative (NEGATIVE) 07/20/17 15:00 Urine Urobilinogen Negative mg/dL (0.2-1.0) 07/20/17 15:00 Ur Leukocyte Esterase Negative (NEGATIVE) 07/20/17 15:00 RPR Titer Nonreactive (NONREACTIVE) 07/21/17 06:00 labs noted Assessment: 07/22/17 11:38 Withdrawal sx. Plan: Continue detox
[2017-07-22] MEDS: chlordiazePOXIDE 5 MG CAPSULE PO SCH ×2 (17:25→22:21)
[2017-07-22] MEDS: THIAMINE HCL 100 MG TABLET (FP) PO SCH (22:21)
[2017-07-23] MEDS: chlordiazePOXIDE 5 MG CAPSULE PO SCH ×2 (05:39→10:09)
[2017-07-23] MEDS: IBUPROFEN 400 MG TABLET (FP) PO PRN ×2 (05:40→16:51)
[2017-07-23] MEDS: guaiFENesin/D-METHORPHAN HB 10 ML UNIT-DOSE CUPS PO PRN ×2 (05:42→22:26)
--- NOTE | 2017-07-23 09:41 | EKG ---
Test Reason : Blood Pressure : / mmHG Vent. Rate : 067 BPM Atrial Rate : 067 BPM P-R Int : 132 ms QRS Dur : 102 ms QT Int : 450 ms P-R-T Axes : 028 067 063 degrees QTc Int : 475 ms NORMAL SINUS RHYTHM NORMAL ECG WHEN COMPARED WITH ECG OF 21-APR-2017 16:44, NO SIGNIFICANT CHANGE WAS FOUND Confirmed by LEONIDAS DORSEY MD ([id number]) on 07/23/2017 9:41:27 AM Referred By: Confirmed By:LEONIDAS DORSEY MD
[2017-07-23] MEDS: PRENATAL VITAMINS W/ FOLIC ACID TABLET (FP) PO SCH (10:09)
[2017-07-23] MEDS: P-EPHED 60MG/TRIPROLIDI 2.5MG TABLET PO PRN (10:10)
[2017-07-23] MEDS: NICOTINE 14 MG/24 HOURS TOPICAL PATCH TD SCH (10:10)
--- NOTE | 2017-07-23 11:00 | PN ---
BHS Progress Note (SOAP) Subjective: tearing sweats mild shakes depressed Objective: 07/23/17 10:54 Vital Signs Temperature 97.3 F L 07/23/17 06:25 Pulse Rate 60 07/23/17 06:25 Respiratory Rate 16 07/23/17 06:25 Blood Pressure 150/80 07/23/17 06:25 O2 Sat by Pulse Oximetry (%) aaox3 ambulating no acute distress Assessment: 07/23/17 10:59 withdrawal sx Plan: continue detox increase fluids psych re-ordered for consultation d/c in am
--- NOTE | 2017-07-23 13:48 | PN ---
Psychiatric Progress Note Vital Signs: Vital Signs Period Temp Pulse Resp BP Sys/Aviles Pulse Ox Last 24 Hr 97.3 F-98.3 F 60-84 16-20 132-156/73-91 Date of Session: 07/23/17 Chief Complaint:: Depression HPI: Patient reports depressed mood, crying spells, low energy, denies suicidal ideations, reports good response to Zoloft poqd 100mg in the past Current Medications: Active Medications Generic Name Dose Route Start Last Admin Trade Name Freq PRN Reason Stop Dose Admin Acetaminophen 650 mg 07/20/17 10:46 07/22/17 05:57 Tylenol - PO 650 mg Q4H PRN Administration FEVER OR PAIN Al Hydroxide/Mg Hydroxide 30 ml 07/20/17 10:46 Mylanta Oral Suspension - PO Q6H PRN DYSPEPSIA Chlordiazepoxide HCl 10 mg 07/23/17 17:00 Librium - PO 07/24/17 11:01 [id number] [id number] Eucalyptus/Menthol/Phenol/Sorbitol 1 each 07/20/17 10:46 07/23/17 10:11 Cepastat Lozenge - MM 1 each Q4H PRN Administration SORE THROAT Guaifenesin 10 ml 07/20/17 10:46 07/23/17 05:42 Robitussin Dm - PO 10 ml Q6H PRN Administration COUGH Hydroxyzine Pamoate 50 mg 07/20/17 10:46 07/21/17 22:23 Vistaril - PO 50 mg Q4H PRN Administration AGITATION Ibuprofen 400 mg 07/20/17 10:46 07/23/17 05:40 Motrin - PO 400 mg Q6H PRN Administration SEVERE PAIN Loperamide HCl 4 mg 07/20/17 10:46 Imodium - PO Q6H PRN DIARRHEA Magnesium Citrate 300 ml 07/20/17 10:46 Citroma - PO Q48H PRN CONSTIPATION Magnesium Hydroxide 30 ml 07/20/17 10:46 Milk Of Magnesia - PO DAILY PRN CONSTIPATION Nicotine 14 mg 07/20/17 11:47 07/23/17 10:10 Nicoderm Patch - TD Not Given DAILY JONG Nicotine Polacrilex 2 mg 07/20/17 10:46 Nicorette Gum - BUC Q2H PRN NICOTINE REPLACEMENT RX Multivit/Folic Acid/Iron 1 tab 07/21/17 10:00 07/23/17 10:09 Vitamins (Sjr) - PO 1 tab DAILY JONG Administration Pseudoephedrine/Triprolidine 1 combo 07/20/17 10:46 07/23/17 10:10 Actifed - PO 1 combo TID PRN Administration NASAL CONGESTION Thiamine HCl 100 mg 07/20/17 22:00 07/22/17 22:21 Vitamin B1 - PO 100 mg HS JONG Administration Medication(s) Change(s): Zoloft poqd 100mg Mental Status Exam - Mental Status Exam Alert and Oriented to: Person Cognitive Function: Fair Patient Appearance: Well Groomed Mood: Sad Affect: Mood Congruent Patient Behavior: Cooperative Speech Pattern: Appropriate Voice Loudness: Mildly Soft/Quiet Thought Process: Goal Oriented Thought Disorder: Being Controlled Hallucinations: Denies Suicidal Ideation: Denies Homicidal Ideation: Denies Insight/Judgement: Fair Sleep: Difficulty falling asleep Appetite: Weight gain Muscle strength/Tone: Normal Gait/Station: Normal Additional Comments: Zoloft poqd 100mg Psychiatric Treatment Plan - Problem List (1) MDD (major depressive disorder) Current Visit: Yes (2) Nicotine dependence Current Visit: Yes Qualifiers: Nicotine product type: cigarettes Substance use status: uncomplicated Qualified Code(s): F17.210 - Nicotine dependence, cigarettes, uncomplicated (3) Alcohol dependence with uncomplicated withdrawal Current Visit: Yes (4) Cocaine abuse Current Visit: Yes (5) Drug-induced mood disorder Current Visit: Yes Initial treatment plan: Zoloft poqd 100mg
[2017-07-23] MEDS: SERTRALINE HCL 50 MG TABLET (FP) PO SCH (14:39)
[2017-07-23] MEDS: chlordiazePOXIDE HCL 10 MG CAPSULE PO SCH ×2 (16:50→22:25)
[2017-07-23] MEDS: THIAMINE HCL 100 MG TABLET (FP) PO SCH (22:25)
[2017-07-23] MEDS: hydrOXYzine PAMOATE 50 MG CAPSULE (FP) PO PRN (22:25)
[2017-07-24] MEDS: guaiFENesin/D-METHORPHAN HB 10 ML UNIT-DOSE CUPS PO PRN ×2 (05:29→10:54)
[2017-07-24] MEDS: chlordiazePOXIDE HCL 10 MG CAPSULE PO SCH ×2 (05:29→10:51)
[2017-07-24] MEDS: ACETAMINOPHEN 325 MG TABLET (FP) PO PRN (05:31)
--- NOTE | 2017-07-24 08:44 | DS ---
[facility] Detox Discharge Summary Admission Date: 07/20/17 Discharge Date: 07/24/17 - History Present History: Alcohol Dependence, Cocaine Dependence - Physical Exam Results Vital Signs: Vital Signs Temperature 97.5 F L 07/24/17 06:39 Pulse Rate 65 07/24/17 06:39 Respiratory Rate 16 07/24/17 06:39 Blood Pressure 145/84 07/24/17 06:39 O2 Sat by Pulse Oximetry (%) - Treatment Hospital Course: Detox Protocol Followed, Detoxed Safely, Responded well, Discharged Condition Good, Rehab Referral Accepted - Medication Discharge Medications: Ambulatory Orders Sertraline HCl [Zoloft -] 100 mg PO DAILY #30 tablet 07/23/17 - Diagnosis (1) Alcohol dependence with uncomplicated withdrawal Current Visit: Yes Status: Chronic (2) Cocaine abuse Current Visit: Yes Status: Chronic (3) Drug-induced mood disorder Current Visit: Yes Status: Chronic (4) Nicotine dependence Current Visit: Yes Status: Chronic Qualifiers: Nicotine product type: cigarettes Substance use status: uncomplicated Qualified Code(s): F17.210 - Nicotine dependence, cigarettes, uncomplicated (5) Syncope Current Visit: No Status: Acute (6) Depression Current Visit: No Status: Chronic (7) History of gastric bypass Current Visit: No Status: Chronic - AMA Did Patient Leave Against Medical Advice: No
[2017-07-24 10:05] VITALS: BP 130/70; PULSE 80; TEMP 98
[2017-07-24] MEDS: PRENATAL VITAMINS W/ FOLIC ACID TABLET (FP) PO SCH (10:51)
[2017-07-24] MEDS: SERTRALINE HCL 50 MG TABLET (FP) PO SCH (10:51)
[2017-07-24] MEDS: NICOTINE 14 MG/24 HOURS TOPICAL PATCH TD SCH (10:53)
== END 2017-07-24 14:34 | disposition home or self-care (01) | DRG 897 ==
LOC: YASAS 08:13 → Y6N 11:41
PROVIDERS: ADMIT Internal Medicine; ATTEND Internal Medicine
PROC: HZ2ZZZZ Detoxification Services for Substance Abuse Treatment (ICD-10-PCS; principal; 2017-07-20)
DX: F10.230 Alcohol dependence with withdrawal, uncomplicated (principal); F14.10 Cocaine abuse, uncomplicated; F17.210 Nicotine dependence, cigarettes, uncomplicated; F19.24 Other psychoactive substance dependence with psychoactive substance-induced mood disorder; F32.9 Major depressive disorder, single episode, unspecified; R55 Syncope and collapse; Z98.84 Bariatric surgery status
CPT/HCPCS: 36415; 80053; 81003; 85027; 86593; 90688; 93005; 93010